=== PATIENT | male | born 1960 | race African-American/Black ===

== ENCOUNTER 2016-09-20 03:31 | Emergency (ER) | payer SELFPAY ==
[2016-09-20 05:50] LABS: BASOPHILS 0.4 % (0-2); EOSINOPHILS 5.6 % (0-7); HEMATOCRIT 41.6 % (42.0-54.0); HEMOGLOBIN 14.6 g/dL (13.5-17.5); LYMPHOCYTES 32.8 % (15-50); MCH 34.6 pg (26.0-34.0); MCHC 35.1 g/dL (31.0-37.0); MCV 98.6 fL (80.0-100.0); MEAN PLATELET VOLUME 10.4 fL (7.4-10.4); MONOCYTES 11.8 % (2-11); NEUTROPHILS 49.4 % (40-80); PLATELET COUNT 152 10x3/uL (130-400); RBC 4.22 10x6/uL (4.20-6.10); RDW 14.4 % (11.5-14.5); WBC 4.9 10x3/uL (4.8-10.8)
[2016-09-20 05:52] LABS: APPEARANCE CLEAR (CLEAR); BILIRUBIN NEGATIVE (NEGATIVE); COLOR STRAW (YELLOW); GLUCOSE NEGATIVE (NEGATIVE); KETONE NEGATIVE (NEGATIVE); LEUKOCYTE ESTERASE NEGATIVE (NEGATIVE); NITRITE NEGATIVE (NEGATIVE); PROTEIN TRACE mg/dL (NEGATIVE); UROBILINOGEN NORMAL (NORMAL)
[2016-09-20 05:54] LABS: UDS - AMPHET NEGATIVE QUAL (NEGATIVE); UDS - BARB NEGATIVE QUAL (NEGATIVE); UDS - BENZO POSITIVE QUAL (NEGATIVE); UDS - COCAINE POSITIVE QUAL (NEGATIVE); UDS - METH NEGATIVE QUAL (NEGATIVE); UDS - OPIATE NEGATIVE QUAL (NEGATIVE); UDS - PCP NEGATIVE QUAL (NEGATIVE); UDS - THC NEGATIVE QUAL (NEGATIVE)
[2016-09-20 06:14] LABS: ALBUMIN 3.5 g/dL (3.4-5.0); ALKALINE PHOSPHATASE 61 U/L (46-116); ALT (SGPT) 51 U/L (10-68); BILIRUBIN - TOTAL 0.21 mg/dL (0.2-1.3); CALC OSMOLALITY 285 mosm/kg (275-300); CALCIUM 8.8 mg/dL (8.5-10.1); CARBON DIOXIDE 24.7 mmol/L (21.0-32.0); CHLORIDE - SERUM 106 mmol/L (98-107); CREATININE - SERUM 0.7 mg/dL (0.6-1.3); GLUCOSE 74 mg/dL (74-106); POTASSIUM - SERUM 4.1 mmol/L (3.5-5.1); PROTEIN - SERUM 7.7 g/dL (6.4-8.2); SODIUM 145 mmol/L (136-145); UREA NITROGEN 7 mg/dL (7-18); eGFR NON AFRICAN AMERICAN > 90 mL/min (90-120)
== END 2016-09-20 18:30 | disposition home or self-care (01) ==
LOC: D.ER 03:31
PROVIDERS: Emergency Medicine
DX: F33.9 Major depressive disorder, recurrent, unspecified (principal); F10.129 Alcohol abuse with intoxication, unspecified; F17.200 Nicotine dependence, unspecified, uncomplicated

== ENCOUNTER 2018-03-20 22:06 | Emergency (ER) | payer MEDICAID ==
[~2018-03-20] VITALS: Ht 182.9 cm; Wt 81.8 kg
[2018-03-20 22:15] VITALS: Ht 182.9 cm; Wt 81.8 kg
[2018-03-20 23:08] LABS: BASOPHILS 0.4 % (0-2); EOSINOPHILS 6.4 % (0-7); HEMATOCRIT 39.2 % (42.0-54.0); HEMOGLOBIN 13.5 g/dL (13.5-17.5); LYMPHOCYTES 47.5 % (15-50); MCH 31.9 pg (26.0-34.0); MCHC 34.4 g/dL (31.0-37.0); MCV 92.7 fL (80.0-100.0); MEAN PLATELET VOLUME 9.4 fL (7.4-10.4); MONOCYTES 8.3 % (2-11); NEUTROPHILS 37.4 % (40-80); RBC 4.23 10x6/uL (4.20-6.10); RDW 14.6 % (11.5-14.5); WBC 5.7 10x3/uL (4.8-10.8)
[2018-03-20 23:09] LABS: PLATELET COUNT 282 10x3/uL (130-400)
[2018-03-20 23:12] LABS: APPEARANCE CLEAR (CLEAR); BILIRUBIN NEGATIVE (NEGATIVE); COLOR YELLOW (YELLOW); GLUCOSE NEGATIVE (NEGATIVE); KETONE NEGATIVE (NEGATIVE); NITRITE NEGATIVE (NEGATIVE); PROTEIN NEGATIVE (NEGATIVE); SPECIFIC GRAVITY 1.015 (1.005-1.020); UROBILINOGEN NORMAL (NORMAL)
[2018-03-20 23:19] LABS: ALBUMIN 3.3 g/dL (3.4-5.0); ALKALINE PHOSPHATASE 92 U/L (46-116); ALT (SGPT) 35 U/L (10-68); BILIRUBIN - TOTAL 0.16 mg/dL (0.2-1.3); CALC OSMOLALITY 288 mosm/kg (275-300); CALCIUM 8.9 mg/dL (8.5-10.1); CARBON DIOXIDE 29.5 mmol/L (21.0-32.0); CHLORIDE - SERUM 105 mmol/L (98-107); CREATININE - SERUM 0.8 mg/dL (0.6-1.3); GLUCOSE 99 mg/dL (74-106); PROTEIN - SERUM 7.8 g/dL (6.4-8.2); SODIUM 146 mmol/L (136-145); UREA NITROGEN 7 mg/dL (7-18); eGFR NON AFRICAN AMERICAN > 90 mL/min (90-120)
[2018-03-20 23:34] LABS: UDS - AMPHET NEGATIVE QUAL (NEGATIVE); UDS - BARB NEGATIVE QUAL (NEGATIVE); UDS - BENZO NEGATIVE QUAL (NEGATIVE); UDS - COCAINE NEGATIVE QUAL (NEGATIVE); UDS - OPIATE NEGATIVE QUAL (NEGATIVE); UDS - PCP NEGATIVE QUAL (NEGATIVE); UDS - THC NEGATIVE QUAL (NEGATIVE)
[2018-03-21 10:32] VITALS: BP 104/80
== END 2018-03-21 10:36 ==
LOC: D.ER 22:06 → EDBD 22:06 → D.ER 22:06
PROVIDERS: Emergency Medicine
DX: F10.129 Alcohol abuse with intoxication, unspecified (principal); F23 Brief psychotic disorder; R45.851 Suicidal ideations

== ENCOUNTER 2018-04-02 18:49 | Emergency (ER) | payer MEDICAID ==
[~2018-04-02] VITALS: Ht 182.9 cm; Wt 81.8 kg
[2018-04-02 19:01] VITALS: Ht 182.9 cm; Wt 81.8 kg
[2018-04-02] MEDS ORDERED: [UNRECOGNIZED DRUG - REMARK] (19:02)
[2018-04-02] MEDS ORDERED: HYDROCODONE (19:02)
[2018-04-02 19:46] LABS: BASOPHILS 0.7 % (0-2); EOSINOPHILS 5.7 % (0-7); HEMATOCRIT 37.6 % (42.0-54.0); HEMOGLOBIN 13.1 g/dL (13.5-17.5); IMMATURE GRANULOCYTES 0.2 % (0-5); LYMPHOCYTES 32.9 % (15-50); MCH 31.9 pg (26.0-34.0); MCHC 34.8 g/dL (31.0-37.0); MCV 91.5 fL (80.0-100.0); MEAN PLATELET VOLUME 9.8 fL (7.4-10.4); MONOCYTES 13.7 % (2-11); NEUTROPHILS 46.8 % (40-80); PLATELET COUNT 247 10x3/uL (130-400); RBC 4.11 10x6/uL (4.20-6.10); WBC 4.5 10x3/uL (4.8-10.8)
[2018-04-02 20:03] LABS: ALBUMIN 3.2 g/dL (3.4-5.0); ALKALINE PHOSPHATASE 75 U/L (46-116); ALT (SGPT) 69 U/L (10-68); BILIRUBIN - TOTAL 0.29 mg/dL (0.2-1.3); CALC OSMOLALITY 275 mosm/kg (275-300); CALCIUM 8.6 mg/dL (8.5-10.1); CARBON DIOXIDE 23.5 mmol/L (21.0-32.0); CHLORIDE - SERUM 102 mmol/L (98-107); CREATININE - SERUM 0.7 mg/dL (0.6-1.3); GLUCOSE 86 mg/dL (74-106); POTASSIUM - SERUM 3.7 mmol/L (3.5-5.1); PROTEIN - SERUM 7.7 g/dL (6.4-8.2); SODIUM 140 mmol/L (136-145); UREA NITROGEN 8 mg/dL (7-18); eGFR NON AFRICAN AMERICAN > 90 mL/min (90-120)
[2018-04-02 20:12] LABS: LIPASE 134 U/L (73-393); MAGNESIUM - SERUM 1.8 mg/dL (1.8-2.4); THYROID STIMULATING HORMONE 1.63 uIU/mL (0.36-3.74); TROPONIN-I < 0.017 ng/mL (0.000-0.060)
[2018-04-02 22:42] LABS: APPEARANCE CLEAR (CLEAR); BILIRUBIN NEGATIVE (NEGATIVE); COLOR YELLOW (YELLOW); GLUCOSE NEGATIVE (NEGATIVE); KETONE NEGATIVE (NEGATIVE); NITRITE NEGATIVE (NEGATIVE); PROTEIN NEGATIVE (NEGATIVE); UROBILINOGEN NORMAL (NORMAL)
[2018-04-02 22:52] LABS: UDS - AMPHET NEGATIVE QUAL (NEGATIVE); UDS - BARB NEGATIVE QUAL (NEGATIVE); UDS - BENZO NEGATIVE QUAL (NEGATIVE); UDS - COCAINE NEGATIVE QUAL (NEGATIVE); UDS - OPIATE NEGATIVE QUAL (NEGATIVE); UDS - PCP NEGATIVE QUAL (NEGATIVE); UDS - THC NEGATIVE QUAL (NEGATIVE)
[2018-04-05 04:49] LABS: BASOPHILS 0.5 % (0-2); EOSINOPHILS 6.5 % (0-7); HEMATOCRIT 34.9 % (42.0-54.0); HEMOGLOBIN 11.6 g/dL (13.5-17.5); IMMATURE GRANULOCYTES 0.3 % (0-5); LYMPHOCYTES 41.3 % (15-50); MCH 30.9 pg (26.0-34.0); MCHC 33.2 g/dL (31.0-37.0); MCV 93.1 fL (80.0-100.0); MEAN PLATELET VOLUME 9.5 fL (7.4-10.4); MONOCYTES 13.6 % (2-11); NEUTROPHILS 37.8 % (40-80); PLATELET COUNT 228 10x3/uL (130-400); RBC 3.75 10x6/uL (4.20-6.10); RDW 15.2 % (11.5-14.5); WBC 3.8 10x3/uL (4.8-10.8)
[2018-04-05 04:57] LABS: ALBUMIN 2.9 g/dL (3.4-5.0); ALKALINE PHOSPHATASE 58 U/L (46-116); ALT (SGPT) 42 U/L (10-68); BILIRUBIN - TOTAL 0.46 mg/dL (0.2-1.3); CALC OSMOLALITY 284 mosm/kg (275-300); CALCIUM 8.4 mg/dL (8.5-10.1); CARBON DIOXIDE 26.5 mmol/L (21.0-32.0); CHLORIDE - SERUM 106 mmol/L (98-107); CREATININE - SERUM 0.6 mg/dL (0.6-1.3); GLUCOSE 95 mg/dL (74-106); POTASSIUM - SERUM 4.1 mmol/L (3.5-5.1); PROTEIN - SERUM 6.8 g/dL (6.4-8.2); SODIUM 144 mmol/L (136-145); UREA NITROGEN 8 mg/dL (7-18); eGFR NON AFRICAN AMERICAN > 90 mL/min (90-120)
[2018-04-05 05:08] LABS: THYROID STIMULATING HORMONE 0.77 uIU/mL (0.36-3.74)
[2018-04-05 05:10] LABS: APPEARANCE CLEAR (CLEAR); BILIRUBIN NEGATIVE (NEGATIVE); COLOR YELLOW (YELLOW); GLUCOSE NEGATIVE (NEGATIVE); KETONE NEGATIVE (NEGATIVE); NITRITE NEGATIVE (NEGATIVE); PROTEIN NEGATIVE (NEGATIVE); UROBILINOGEN NORMAL (NORMAL)
[2018-04-05 11:05] VITALS: BP 135/88
--- NOTE | 2018-04-05 15:48 | CN ---
PATIENT NAME:BALTA DUQUE MEDICAL RECORD: [id number] : [birth year] LOCATION:[facility] ADMIT DATE: ACCOUNT: [id number] CONSULTING PHYSICIAN: JONAH DICKEY MD REFERRING PHYSICIAN: LESLY LAM MD DATE OF CONSULTATION: 04/04/2018 PSYCHIATRIC CONSULTATION IDENTIFYING DATA: The patient is 58 years old and he is admitted to the Emergency Room on a voluntary basis. CHIEF COMPLAINT: Suicidal thoughts and psychosis. HISTORY OF PRESENT ILLNESS: The patient was originally brought to the hospital via EMS. He has a known history of chronic mental illness and has been extensively treated on an inpatient and outpatient basis for several decades. He was intoxicated at the time he presented here and was having some suicidal ideations. He is endorsing numerous neurovegetative depressive symptoms. He is not showing evidence of alcohol withdrawal. He minimizes the amount he drinks, but since he has been here, has not displayed any evidence of alcohol withdrawal that would necessitate treatment. He continues to endorse thoughts of wanting to hurt himself and says that if he leaves here, he is going to wheel his wheelchair into traffic and kill himself. He also says he is having thoughts about hurting other people. He is clearly psychotic. He is attending to stimuli not present in the room. When I interview him, he is making poor eye contact. He is endorsing numerous neurovegetative symptoms and is acutely dangerous. The patient denies drug use. He minimizes his alcohol abuse. He says he has not been taking his outpatient medications and has been lost to follow up from his outpatient psychiatrist. PAST PSYCHIATRIC HISTORY: Significant for numerous hospitalizations including extensive stays at the [facility], [facility], and other facilities. MENTAL STATUS EXAMINATION: The patient is awake; alert; and oriented to person, place, time, and situation. His mood is flat. His affect is constricted. Thought processes are circumstantial. Memory, concentration, and abstraction abilities are moderately impaired and he endorses psychotic symptoms along with specific thoughts about harming himself and vague thoughts about harming others. ASSESSMENT: 1. Schizophrenia. 2. Alcohol abuse. PLAN: At this time, the patient is a known chronically mentally ill man who is in desperate need of inpatient psychiatric care. I strongly recommend that he be admitted to a psychiatric facility. There is some information in his chart that needs clarification. He is not a paraplegic. 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 He is wheelchair bound, but is able to stand and transfer. He has some contractions in his upper arms, but is able to extend and flex his major muscle groups from the hip. He is also able to move both ankles in a circular motion. He has reasonable range of motion in his upper body and again he does not wear a catheter. He toilets himself, washes himself, dresses himself, and transfers from bed to wheelchair, wheelchair to toilet and/or sofa as needed. He is profoundly psychotic and CONSULT REPORT [id number] BALTA DUQUE acutely dangerous, and must be hospitalized on an inpatient psychiatric unit for care. TRANSINT:[id number] Voice Confirmation ID: [id number] DOCUMENT ID: [id number] JONAH DICKEY MD at 1548 CC: [id number] DICTATION DATE: 04/04/181837 COOK HELPER MEAT: 04/04/18 185 DEP ER 04/05/18 [id number] [place] [address]
== END 2018-04-05 11:06 ==
LOC: D.ER 18:49
PROVIDERS: Emergency Medicine; Family Medicine
DX: R45.851 Suicidal ideations (principal); G89.29 Other chronic pain; F17.200 Nicotine dependence, unspecified, uncomplicated

== ENCOUNTER 2018-12-02 01:53 | Emergency (ER) | payer MEDICAID ==
[~2018-12-02] VITALS: Ht 182.9 cm; Wt 54.5 kg
[~2018-12-02 01:53] MED LIST: HYDROCODONE; [UNRECOGNIZED DRUG - REMARK]
[2018-12-02 01:56] VITALS: Ht 182.9 cm; Wt 54.5 kg
[2018-12-02 02:31] LABS: APPEARANCE CLEAR (CLEAR); BILIRUBIN NEGATIVE (NEGATIVE); COLOR YELLOW (YELLOW); GLUCOSE NEGATIVE (NEGATIVE); KETONE NEGATIVE (NEGATIVE); NITRITE NEGATIVE (NEGATIVE); PROTEIN NEGATIVE (NEGATIVE); SPECIFIC GRAVITY 1.015 (1.005-1.020); UROBILINOGEN NORMAL (NORMAL)
[2018-12-02 02:39] LABS: BASOPHILS 0.8 % (0-2); EOSINOPHILS 3.9 % (0-7); HEMATOCRIT 37.4 % (42.0-54.0); HEMOGLOBIN 13.2 g/dL (13.5-17.5); IMMATURE GRANULOCYTES 0.3 % (0-5); LYMPHOCYTES 38.7 % (15-50); MCH 34.3 pg (26.0-34.0); MCHC 35.3 g/dL (31.0-37.0); MCV 97.1 fL (80.0-100.0); MEAN PLATELET VOLUME 9.7 fL (7.4-10.4); MONOCYTES 14.2 % (2-11); NEUTROPHILS 42.1 % (40-80); PLATELET COUNT 197 10x3/uL (130-400); RBC 3.85 10x6/uL (4.20-6.10); RDW 14.2 % (11.5-14.5); WBC 6.1 10x3/uL (4.8-10.8)
[2018-12-02 02:42] LABS: UDS - AMPHET NEGATIVE QUAL (NEGATIVE); UDS - BARB NEGATIVE QUAL (NEGATIVE); UDS - BENZO NEGATIVE QUAL (NEGATIVE); UDS - COCAINE NEGATIVE QUAL (NEGATIVE); UDS - OPIATE NEGATIVE QUAL (NEGATIVE); UDS - PCP NEGATIVE QUAL (NEGATIVE); UDS - THC NEGATIVE QUAL (NEGATIVE)
[2018-12-02 03:00] LABS: ALBUMIN 3.3 g/dL (3.4-5.0); ALKALINE PHOSPHATASE 84 U/L (46-116); ALT (SGPT) 29 U/L (10-68); BILIRUBIN - TOTAL 0.12 mg/dL (0.2-1.3); CALCIUM 8.3 mg/dL (8.5-10.1); CARBON DIOXIDE 25.6 mmol/L (21.0-32.0); CREATININE - SERUM 0.7 mg/dL (0.6-1.3); GLUCOSE 75 mg/dL (74-106); UREA NITROGEN 14 mg/dL (7-18); eGFR NON AFRICAN AMERICAN > 90 mL/min (90-120)
[2018-12-02 03:52] LABS: CALC OSMOLALITY 280 mosm/kg (275-300); CHLORIDE - SERUM 104 mmol/L (98-107); POTASSIUM - SERUM 3.8 mmol/L (3.5-5.1); SODIUM 141 mmol/L (136-145)
--- NOTE | 2018-12-02 11:16 | NUR ---
PT DENIES SI AT THIS TIME. HE STATED, "I WAS DRINKING AND THAT MUST HAVE BEEN WHY I SAID THAT." PT STATED, "I HAVE NEVER TRIED TO HURT MYSELF AND I DON'T HAVE ANY WAY TO DO IT ANYWAY." REVIEWED RESULTS WITH DR. DICKEY AND ATTENDING AND RESOURCES GIVEN. PT VERBALIZED UNDERSTANDING.
[2018-12-02 11:30] VITALS: BP 106/68
[2018-12-12 23:22] VITALS: Ht 182.9 cm; Wt 54.5 kg
== END 2018-12-02 11:31 | disposition home or self-care (01) ==
LOC: D.ER 01:53
PROVIDERS: Emergency Medicine
DX: F10.129 Alcohol abuse with intoxication, unspecified (principal); F17.200 Nicotine dependence, unspecified, uncomplicated; G82.20 Paraplegia, unspecified

== ENCOUNTER 2018-12-02 20:42 | Observation (INO) | payer MEDICAID ==
[~2018-12-02] VITALS: Ht 182.9 cm; Wt 59.6 kg
--- NOTE | 2018-12-02 20:52 | NUR ---
PT IN SECURE ROOM 21. IN SCRUBS. 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
[2018-12-02 21:03] LABS: BASOPHILS 0.6 % (0-2); EOSINOPHILS 2.9 % (0-7); HEMATOCRIT 33.1 % (42.0-54.0); HEMOGLOBIN 11.7 g/dL (13.5-17.5); IMMATURE GRANULOCYTES 0.1 % (0-5); MCH 33.9 pg (26.0-34.0); MCHC 35.3 g/dL (31.0-37.0); MCV 95.9 fL (80.0-100.0); MONOCYTES 12.7 % (2-11); NEUTROPHILS 43.7 % (40-80); PLATELET COUNT 195 10x3/uL (130-400); RBC 3.45 10x6/uL (4.20-6.10); RDW 14.1 % (11.5-14.5); WBC 6.8 10x3/uL (4.8-10.8)
[2018-12-02 21:19] LABS: ALBUMIN 3.1 g/dL (3.4-5.0); ALKALINE PHOSPHATASE 76 U/L (46-116); ALT (SGPT) 27 U/L (10-68); BILIRUBIN - TOTAL 0.18 mg/dL (0.2-1.3); CALCIUM 7.8 mg/dL (8.5-10.1); CARBON DIOXIDE 26.4 mmol/L (21.0-32.0); CHLORIDE - SERUM 108 mmol/L (98-107); CREATININE - SERUM 0.7 mg/dL (0.6-1.3); POTASSIUM - SERUM 3.8 mmol/L (3.5-5.1); PROTEIN - SERUM 7.4 g/dL (6.4-8.2); SODIUM 142 mmol/L (136-145); eGFR NON AFRICAN AMERICAN > 90 mL/min (90-120)
[2018-12-02 21:23] LABS: CALC OSMOLALITY 282 mosm/kg (275-300); GLUCOSE 117 mg/dL (74-106); UREA NITROGEN 10 mg/dL (7-18)
[2018-12-02 21:25] LABS: INR 0.89 (0.85-1.17); PROTIME 11.6 SECONDS (11.6-15.0)
--- NOTE | 2018-12-02 21:32 | NUR ---
PT TO CT.
--- NOTE | 2018-12-02 21:37 | NUR ---
BACK FROM CT.
--- NOTE | 2018-12-02 21:40 | NUR ---
UNABLE TO ASSESS DO TO INTOXICATION. WILL ASSESS AFTER AM LAB IF CLEARED OF INTOX.
--- NOTE | 2018-12-02 21:59 | NUR ---
PT'S URINAL AT BEDSIDE. PT RESTING QUIETLY WITH EYES CLOSED.
--- NOTE | 2018-12-02 23:15 | NUR ---
PT INCONTINENT OF URINE. BANANA BAG HUNG. PT STILL USING FOUL LANGUAGE AND DIFFICULT TO ASSESS.
--- NOTE | 2018-12-02 23:20 | NUR ---
BANANA BAG CON'T ON ADMISSION. BELONGINGS INCLUDING WHEELCHAIR TO ICU WELL. INFORMED ALY BARTH IN ICU THAT WHEN PATIENT MARTHA UP WILL NEED MENTAL HEALTH ASSESSMENT. VERBALIZES UNDERSTANDING.
--- NOTE | 2018-12-02 23:25 | NUR ---
SPOKE TO DR. ERNANDEZ ABOUT URINE. STATES NOT TO CATHETERIZE- MAY COLLECT IN ICU. PT'S PULL UP AND LINEN CHANGED.
--- NOTE | 2018-12-02 23:35 | NUR ---
PT ARRIVED TO ICU ON ER STRETCHER. PT MOVED OVER INTO ICU BED AND HOOKED UP TO MONITOR. VSS. UNABLE TO ASCERTAIN INFORMATION FROM PT DUE TO INEBRIATION. PT CURRENTLY SLEEPING. SNORING. WILL CONTINUE TO MONITOR FOR CHANCE TO GET HISTORY FROM PT.
[2018-12-03] VITALS (9 sets, daily range): BP systolic 91–132; BP diastolic 52–102; Ht 182.9 cm; Wt 59.6 kg
--- NOTE | 2018-12-03 01:01 | NUR ---
UNABLE TO ASSESS PT HISTORY DUE TO COMBATIVE MOOD OF PT. DOES NOT RESPOND TO QUESTIONS. WILL CONTINUE TO MONITOR
--- NOTE | 2018-12-03 03:00 | NUR ---
PT REASSESSMENT COMPLETED. PT STILL REFUSES TO COOPERATE WITH NURSING STAFF TO ANSWER QUESTIONS. VSS. WILL CONTINUE TO MONITOR. PULSE OX IS BEING SPOT CHECKED DUE TO PT REFUSING TO KEEP PULSE OX ON.
[2018-12-03 04:12] LABS: UDS - AMPHET NEGATIVE QUAL (NEGATIVE); UDS - BARB NEGATIVE QUAL (NEGATIVE); UDS - BENZO NEGATIVE QUAL (NEGATIVE); UDS - COCAINE NEGATIVE QUAL (NEGATIVE); UDS - OPIATE NEGATIVE QUAL (NEGATIVE); UDS - PCP NEGATIVE QUAL (NEGATIVE); UDS - THC NEGATIVE QUAL (NEGATIVE)
[2018-12-03 04:29] LABS: APPEARANCE CLEAR (CLEAR); BILIRUBIN NEGATIVE (NEGATIVE); COLOR YELLOW (YELLOW); GLUCOSE NEGATIVE (NEGATIVE); KETONE NEGATIVE (NEGATIVE); NITRITE NEGATIVE (NEGATIVE); PROTEIN NEGATIVE (NEGATIVE); UROBILINOGEN NORMAL (NORMAL)
[2018-12-03 04:30] LABS: BACTERIA FEW /hpf (NEGATIVE); EPITHELIAL CELLS 0-5 /hpf (0-5); MUCUS <1+ /lpf (NONE SEEN); RED CELLS - URINE 0-5 /hpf (0-5); WHITE CELLS - URINE 0-5 /hpf (NEGATIVE)
--- NOTE | 2018-12-03 05:04 | NUR ---
PT RESTING IN BED. AWAKENS EASILY BUT DOES NOT RESPOND WHEN ASKED QUESTIONS ABOUT HISTORY. WILL CONTINUE MONITOR.
--- NOTE | 2018-12-03 07:43 | NUR ---
PT ANGRY AND THREATENING TO LEAVE AMA. TOLD PT THAT DR DICKEY NEEDED TO ROUND ON HIM 1ST. SAYS HE NEEDS TO HAVE A BM. PUT PT ON BEDPAN. PT MAD AND STATED HE WAS UNABLE TO USE BEDPAN AND THAT HE WANTED A BSC. PT DOES NOT WALK. IS A PARAPLEGIC. STATED TO TRY TO USE BEDPAN FOR NOW.
--- NOTE | 2018-12-03 09:08 | NUR ---
DR BANKS ROUNDED AND HAD TOLD THE PT HE COULD LEAVE AMA, AFTER PT DOES CLEARS BEHAVIORAL HEALTH. SPOKE WITH KURT RN, IN BEHAVIORAL HEALTH. SHE STATED TO GO ON AND GET HIS ALCOHOL LEVEL DRAWN ONE MORE TIME TO MAKE SURE IT IS UNDER 100 THEN A PSYCH NURSE CAN DO HIS SUICIDE RISK ASSESSMENT AND THAT WILL DETERMINE IF THE PT CAN SIGN AMA OR IF HE MUST STAY TO SEE DR DICKEY. PT VERBALIZED UNDERSTANDING. THEN 5 MINUTES LATER STARTED HOLLERING ABOUT "LEAVING THIS [facility]." TOLD PT AGAIN THAT WE WERE WAITING ON HIS BLOOD TO BE DRAWN.
--- NOTE | 2018-12-03 09:32 | NUR ---
HYDROGEN PLANT OPERATIONS MANAGER IN ROOM DRAWING BLOOD AT THIS TIME.
--- NOTE | 2018-12-03 09:50 | NUR ---
ALCOHOL LEVEL RETURNED 0.0. PSYCH NURSE IN TO ASSESS PT.
--- NOTE | 2018-12-03 10:11 | NUR ---
SUICIDAL RISK ASSESSMENT COMPLETED. PATIENT'S BEHAVIOR AND ASSESSMENT RESULTS IS AT LOW RISK. DR. DICKEY STATED TO GIVE RESOURCES TO PATIENT AT THE TIME OF DISCHARGE. NO FURTHER ORDERS AT THIS TIME. RESOURCES REVIEWED WITH PATIENT AND HE VERBALIZES UNDERSTANDING.
--- NOTE | 2018-12-03 10:15 | NUR ---
PSYCH NURSE STATES PT IS LOW RISK SO PT DOES NOT HAVE TO SEE THE PSYCH DOCTOR. PT STATES HE WANTS TO LEAVE IMMEDIATELY.
--- NOTE | 2018-12-03 10:30 | NUR ---
HAD LARGE BM. PUT ON PAPERSCRUBS. IV REMOVED. ASSISTED TO WHEELCHAIR.
--- NOTE | 2018-12-03 10:42 | NUR ---
PT SIGNED AMA PAPERWORK.
--- NOTE | 2018-12-03 10:44 | NUR ---
PT WANTS CAB VOUCHER. DO NOT GIVE TO PTS WHO SIGN AMA. TOLD PT THAT.
--- NOTE | 2018-12-03 10:59 | MORECARE ---
CASE MANAGEMENT DISCHARGE SUMMARY PATIENT: BALTA DUQUE UNIT: [id number] ADM DATE: 12/02/18 AGE: 59 : [birth year] SEX: M ROOM/BED: D.2310 AUTHOR: MEENA CANTU PHYSICIAN: REFERRING PHYSICIAN: RAJAT BANKS MD DATE OF SERVICE: 12/03/18 Discharge Plan Patient Name: BALTA DUQUE Facility: [facility]:[place] : 10/27/1959 Planned Disposition: Anticipated Discharge Date: Discharge Date: 12/03/2018 Expected LOS: Initial Reviewer: [email or web address] Initial Review Date: 12/02/2018 Generated: 12/03/18 11:58 am Patient Name: BALTA DUQUE Page [id number] at 1059 All edits/amendments must be made on the electronic document DICTATION DATE: 12/03/18 1058 CABLE ASSEMBLER AND SWAGER: LEOBARDO 12/03/18 1058 RPT#: [id number] DC DATE:12/03/18 STATUS: DIS IN [facility] [address] [place] [address] END OF REPORT
--- NOTE | 2018-12-03 21:40 | NUR ---
PATIENT IS INTOXICATED AT THIS TIME. UNABLE TO ASSESS. WILL ATTEMPTED AFTER AM LAB IF CLEARED AT THAT TIME.
[2018-12-04] MEDS ORDERED: ROXICODONE30 MG PO (04:28)
== END 2018-12-03 10:52 | disposition left against medical advice (07) ==
LOC: D.ER 20:42 → OBSVTIME 22:14 → D.ICU 22:14
PROVIDERS: Emergency Medicine; ADMIT Family Medicine; ATTEND Family Medicine
DX: F10.121 Alcohol abuse with intoxication delirium (principal); R45.851 Suicidal ideations; F17.200 Nicotine dependence, unspecified, uncomplicated; G82.20 Paraplegia, unspecified

== ENCOUNTER 2018-12-04 04:20 | Emergency (ER) | payer MEDICAID ==
[~2018-12-04] VITALS: Ht 182.9 cm; Wt 58.2 kg
[2018-12-04 04:26] VITALS: BP 101/66; Ht 182.9 cm; Wt 58.2 kg
[2018-12-04] MEDS ORDERED: ROXICODONE30 MG PO (04:28)
[2018-12-04 05:05] LABS: BASOPHILS 0.6 % (0-2); EOSINOPHILS 1.6 % (0-7); HEMATOCRIT 37.6 % (42.0-54.0); HEMOGLOBIN 13.4 g/dL (13.5-17.5); LYMPHOCYTES 38.6 % (15-50); MCH 34.1 pg (26.0-34.0); MCHC 35.6 g/dL (31.0-37.0); MCV 95.7 fL (80.0-100.0); MEAN PLATELET VOLUME 9.5 fL (7.4-10.4); MONOCYTES 8.8 % (2-11); NEUTROPHILS 50.4 % (40-80); PLATELET COUNT 233 10x3/uL (130-400); RBC 3.93 10x6/uL (4.20-6.10); RDW 14.1 % (11.5-14.5)
[2018-12-04 05:22] LABS: ALBUMIN 3.5 g/dL (3.4-5.0); ALKALINE PHOSPHATASE 66 U/L (46-116); BILIRUBIN - TOTAL 0.17 mg/dL (0.2-1.3); CALCIUM 8.8 mg/dL (8.5-10.1); CARBON DIOXIDE 28.3 mmol/L (21.0-32.0); CHLORIDE - SERUM 104 mmol/L (98-107); CREATININE - SERUM 0.6 mg/dL (0.6-1.3); GLUCOSE 94 mg/dL (74-106); POTASSIUM - SERUM 4.3 mmol/L (3.5-5.1); PROTEIN - SERUM 8.3 g/dL (6.4-8.2); SODIUM 141 mmol/L (136-145); eGFR NON AFRICAN AMERICAN > 90 mL/min (90-120)
[2018-12-04 05:23] LABS: ALT (SGPT) 37 U/L (10-68); CALC OSMOLALITY 277 mosm/kg (275-300); UREA NITROGEN 5 mg/dL (7-18)
[2018-12-04 07:29] LABS: APPEARANCE CLEAR (CLEAR); BILIRUBIN NEGATIVE (NEGATIVE); COLOR STRAW (YELLOW); GLUCOSE NEGATIVE (NEGATIVE); KETONE NEGATIVE (NEGATIVE); NITRITE NEGATIVE (NEGATIVE); PROTEIN NEGATIVE (NEGATIVE); SPECIFIC GRAVITY 1.015 (1.005-1.020); UROBILINOGEN NORMAL (NORMAL)
[2018-12-04 07:39] LABS: UDS - AMPHET NEGATIVE QUAL (NEGATIVE); UDS - BARB NEGATIVE QUAL (NEGATIVE); UDS - BENZO NEGATIVE QUAL (NEGATIVE); UDS - COCAINE POSITIVE QUAL (NEGATIVE); UDS - OPIATE NEGATIVE QUAL (NEGATIVE); UDS - PCP NEGATIVE QUAL (NEGATIVE); UDS - THC NEGATIVE QUAL (NEGATIVE)
--- NOTE | 2018-12-04 10:11 | NUR ---
DR. DICKEY NOTIFIED AND REVIEWED PT'S BEHAVIOR AND ASSESSMENT RESULTS. PT IS A LOW RISK PER DR. DICKEY. DR. DICKEY STATED TO GIVE RESOURCES TO PT AT TIME OF DISCHARGE. NO FURTHER ORDERS AT THIS TIME. RESOURCES REVIEWED WITH PT AND HE VERBALIZED UNDERSTANDING.
== END 2018-12-04 14:14 | disposition home or self-care (01) ==
LOC: D.ER 04:20
PROVIDERS: Emergency Medicine
DX: R45.851 Suicidal ideations (principal); D64.9 Anemia, unspecified; F10.10 Alcohol abuse, uncomplicated; F19.10 Other psychoactive substance abuse, uncomplicated; F32.9 Major depressive disorder, single episode, unspecified

== ENCOUNTER 2018-12-06 15:52 | Emergency (ER) | payer MEDICAID ==
[~2018-12-06] VITALS: Ht 182.9 cm; Wt 59.1 kg
[~2018-12-06 15:52] MED LIST changes: +ROXICODONE30 MG PO
[2018-12-06 16:01] VITALS: BP 93/59; Ht 182.9 cm; Wt 59.1 kg
== END 2018-12-06 16:15 | disposition home or self-care (01) ==
LOC: D.ER 15:52
DX: Z13.89 Encounter for screening for other disorder (principal)

== ENCOUNTER 2018-12-09 03:43 | Emergency (ER) | payer MEDICAID ==
[~2018-12-09] VITALS: Ht 182.9 cm; Wt 56.8 kg
[2018-12-09 03:47] VITALS: Ht 182.9 cm; Wt 56.8 kg
[2018-12-09 08:01] VITALS: BP 131/86
== END 2018-12-09 08:03 | disposition home or self-care (01) ==
LOC: D.ER 03:43
DX: F10.20 Alcohol dependence, uncomplicated (principal); G82.20 Paraplegia, unspecified; B19.20 Unspecified viral hepatitis C without hepatic coma

== ENCOUNTER 2018-12-10 22:00 | Emergency (ER) | payer MEDICAID ==
[~2018-12-10] VITALS: Ht 182.9 cm; Wt 85.9 kg
[2018-12-10 22:14] VITALS: BP 107/61; Ht 182.9 cm; Wt 85.9 kg
== END 2018-12-11 07:28 | disposition home or self-care (01) ==
LOC: D.ER 22:00
DX: F10.229 Alcohol dependence with intoxication, unspecified (principal); Y90.7 Blood alcohol level of 200-239 mg/100 ml; Z76.5 Malingerer [conscious simulation]; B19.20 Unspecified viral hepatitis C without hepatic coma

== ENCOUNTER 2018-12-12 23:20 | Emergency (ER) | payer MEDICAID ==
[~2018-12-12] VITALS: Ht 182.9 cm; Wt 50.0 kg
[2018-12-12 23:22] VITALS: Ht 182.9 cm; Wt 50.0 kg
[2018-12-12 23:44] LABS: HEMATOCRIT 34.9 % (42.0-54.0); HEMOGLOBIN 12.4 g/dL (13.5-17.5); LYMPHOCYTES 33.7 % (15-50); MCH 34.9 pg (26.0-34.0); MCHC 35.5 g/dL (31.0-37.0); MCV 98.3 fL (80.0-100.0); MEAN PLATELET VOLUME 9.1 fL (7.4-10.4); NEUTROPHILS 60.3 % (40-80); PLATELET COUNT 234 10x3/uL (130-400); RBC 3.55 10x6/uL (4.20-6.10); RDW 14.8 % (11.5-14.5); WBC 5.9 10x3/uL (4.8-10.8)
[2018-12-13 00:06] LABS: ALBUMIN 3.3 g/dL (3.4-5.0); ALKALINE PHOSPHATASE 79 U/L (46-116); ALT (SGPT) 39 U/L (10-68); BILIRUBIN - TOTAL 0.22 mg/dL (0.2-1.3); CALC OSMOLALITY 278 mosm/kg (275-300); CALCIUM 8.3 mg/dL (8.5-10.1); CARBON DIOXIDE 25.8 mmol/L (21.0-32.0); CHLORIDE - SERUM 104 mmol/L (98-107); CREATININE - SERUM 0.6 mg/dL (0.6-1.3); GLUCOSE 105 mg/dL (74-106); MAGNESIUM - SERUM 1.8 mg/dL (1.8-2.4); POTASSIUM - SERUM 3.8 mmol/L (3.5-5.1); PROTEIN - SERUM 7.9 g/dL (6.4-8.2); SODIUM 141 mmol/L (136-145); UREA NITROGEN 8 mg/dL (7-18); eGFR NON AFRICAN AMERICAN > 90 mL/min (90-120)
[2018-12-13 02:43] LABS: UDS - AMPHET NEGATIVE QUAL (NEGATIVE); UDS - BARB NEGATIVE QUAL (NEGATIVE); UDS - BENZO NEGATIVE QUAL (NEGATIVE); UDS - COCAINE POSITIVE QUAL (NEGATIVE); UDS - OPIATE NEGATIVE QUAL (NEGATIVE); UDS - PCP NEGATIVE QUAL (NEGATIVE); UDS - THC NEGATIVE QUAL (NEGATIVE)
[2018-12-13 02:44] LABS: APPEARANCE CLEAR (CLEAR); COLOR YELLOW (YELLOW)
[2018-12-13 02:45] LABS: BILIRUBIN NEGATIVE (NEGATIVE); GLUCOSE NEGATIVE (NEGATIVE); KETONE NEGATIVE (NEGATIVE); NITRITE NEGATIVE (NEGATIVE); PROTEIN NEGATIVE (NEGATIVE); SPECIFIC GRAVITY 1.015 (1.005-1.020); UROBILINOGEN NORMAL (NORMAL)
[2018-12-13 08:34] VITALS: BP 137/78
== END 2018-12-13 08:35 | disposition home or self-care (01) ==
LOC: D.ER 23:20
PROVIDERS: Family Medicine
DX: R45.851 Suicidal ideations (principal); F10.129 Alcohol abuse with intoxication, unspecified; Y90.8 Blood alcohol level of 240 mg/100 ml or more

== ENCOUNTER 2018-12-15 05:32 | Emergency (ER) | payer MEDICAID ==
[~2018-12-15] VITALS: Ht 182.9 cm; Wt 75.0 kg
[2018-12-15 05:44] VITALS: Ht 182.9 cm; Wt 75.0 kg
[2018-12-15 06:24] LABS: BASOPHILS 0.7 % (0-2); EOSINOPHILS 5.5 % (0-7); HEMOGLOBIN 15.1 g/dL (13.5-17.5); IMMATURE GRANULOCYTES 0.2 % (0-5); LYMPHOCYTES 37.3 % (15-50); MCH 34.7 pg (26.0-34.0); MCHC 34.3 g/dL (31.0-37.0); MCV 101.1 fL (80.0-100.0); MEAN PLATELET VOLUME 9.8 fL (7.4-10.4); MONOCYTES 9.2 % (2-11); NEUTROPHILS 47.1 % (40-80); PLATELET COUNT 242 10x3/uL (130-400); RBC 4.35 10x6/uL (4.20-6.10); RDW 14.5 % (11.5-14.5); WBC 4.4 10x3/uL (4.8-10.8)
[2018-12-15 06:42] LABS: ALBUMIN 3.6 g/dL (3.4-5.0); ALKALINE PHOSPHATASE 77 U/L (46-116); ALT (SGPT) 40 U/L (10-68); BILIRUBIN - TOTAL 0.18 mg/dL (0.2-1.3); CALC OSMOLALITY 282 mosm/kg (275-300); CALCIUM 8.6 mg/dL (8.5-10.1); CARBON DIOXIDE 28.2 mmol/L (21.0-32.0); CHLORIDE - SERUM 104 mmol/L (98-107); CREATININE - SERUM 0.5 mg/dL (0.6-1.3); MAGNESIUM - SERUM 2.1 mg/dL (1.8-2.4); PROTEIN - SERUM 8.4 g/dL (6.4-8.2); SODIUM 144 mmol/L (136-145); UREA NITROGEN 7 mg/dL (7-18); eGFR NON AFRICAN AMERICAN > 90 mL/min (90-120)
[2018-12-15 06:44] LABS: GLUCOSE 70 mg/dL (74-106)
[2018-12-15 11:07] LABS: APPEARANCE CLEAR (CLEAR); BILIRUBIN NEGATIVE (NEGATIVE); COLOR YELLOW (YELLOW); GLUCOSE NEGATIVE (NEGATIVE); KETONE NEGATIVE (NEGATIVE); NITRITE NEGATIVE (NEGATIVE); PROTEIN NEGATIVE (NEGATIVE); SPECIFIC GRAVITY 1.025 (1.005-1.020); UROBILINOGEN NORMAL (NORMAL)
[2018-12-15 11:12] LABS: UDS - AMPHET NEGATIVE QUAL (NEGATIVE); UDS - BARB NEGATIVE QUAL (NEGATIVE); UDS - BENZO NEGATIVE QUAL (NEGATIVE); UDS - COCAINE POSITIVE QUAL (NEGATIVE); UDS - OPIATE NEGATIVE QUAL (NEGATIVE); UDS - PCP NEGATIVE QUAL (NEGATIVE); UDS - THC NEGATIVE QUAL (NEGATIVE)
--- NOTE | 2018-12-15 12:22 | NUR ---
DR. DICKEY NOTIFIED AND SITTER ORDERED. SITTER AT BEDSIDE. NOTIFIED CHARGE NURSE AND ATTENDING IN REGARDS TO ASSESSMENT FINDINGS. RESOURCES GIVEN TO PT AND SAFETY PLAN INTIATED.
[2018-12-15 15:17] VITALS: BP 112/68
== END 2018-12-15 20:27 ==
LOC: D.ER 05:32
PROVIDERS: Emergency Medicine
DX: R45.851 Suicidal ideations (principal)

== ENCOUNTER 2018-12-26 04:40 | Emergency (ER) | payer MEDICAID ==
[~2018-12-26] VITALS: Ht 182.9 cm; Wt 59.1 kg
[2018-12-26 04:55] VITALS: Ht 182.9 cm; Wt 59.1 kg
--- NOTE | 2018-12-26 05:24 | NUR ---
UNABLE TO ASSESS PT AT THIS TIME PT DRIFTING OFF TO SLEEP BETWEEN QUESTIONS, PT HAD MADE STATEMENT TO EMS AND POLICE THAT HE WAS GOING TO KILL HIMSELF BY ROLLING OUT INTO TRAFFIC IN HIS WHEELCHAIR. 1:1 SUICIDE OBSERVATION DUE TO PRIOR STATEMENTS AND WILL ASSESS WHEN HE IS ALERT.
[2018-12-26 05:31] LABS: HEMATOCRIT 40.5 % (42.0-54.0); LYMPHOCYTES 39.2 % (15-50); MCH 34.6 pg (26.0-34.0); MCHC 34.6 g/dL (31.0-37.0); MEAN PLATELET VOLUME 8.9 fL (7.4-10.4); NEUTROPHILS 51.1 % (40-80); PLATELET COUNT 209 10x3/uL (130-400); RBC 4.05 10x6/uL (4.20-6.10); RDW 14.5 % (11.5-14.5); WBC 4.8 10x3/uL (4.8-10.8)
[2018-12-26 05:55] LABS: ALBUMIN 3.2 g/dL (3.4-5.0); ALKALINE PHOSPHATASE 71 U/L (46-116); ALT (SGPT) 26 U/L (10-68); BILIRUBIN - TOTAL 0.12 mg/dL (0.2-1.3); CALC OSMOLALITY 280 mosm/kg (275-300); CALCIUM 8.7 mg/dL (8.5-10.1); CARBON DIOXIDE 25.6 mmol/L (21.0-32.0); CHLORIDE - SERUM 106 mmol/L (98-107); CREATININE - SERUM 0.5 mg/dL (0.6-1.3); GLUCOSE 100 mg/dL (74-106); PROTEIN - SERUM 7.8 g/dL (6.4-8.2); SODIUM 142 mmol/L (136-145); UREA NITROGEN 7 mg/dL (7-18); eGFR NON AFRICAN AMERICAN > 90 mL/min (90-120)
[2018-12-26 05:57] LABS: MAGNESIUM - SERUM 1.8 mg/dL (1.8-2.4)
[2018-12-26 06:21] LABS: APPEARANCE CLEAR (CLEAR); BILIRUBIN NEGATIVE (NEGATIVE); COLOR YELLOW (YELLOW); GLUCOSE NEGATIVE (NEGATIVE); KETONE NEGATIVE (NEGATIVE); NITRITE NEGATIVE (NEGATIVE); PROTEIN NEGATIVE (NEGATIVE); SPECIFIC GRAVITY 1.015 (1.005-1.020); UROBILINOGEN NORMAL (NORMAL)
[2018-12-26 06:31] LABS: UDS - AMPHET NEGATIVE QUAL (NEGATIVE); UDS - BARB NEGATIVE QUAL (NEGATIVE); UDS - BENZO NEGATIVE QUAL (NEGATIVE); UDS - COCAINE POSITIVE QUAL (NEGATIVE); UDS - OPIATE NEGATIVE QUAL (NEGATIVE); UDS - PCP NEGATIVE QUAL (NEGATIVE); UDS - THC NEGATIVE QUAL (NEGATIVE)
[2018-12-26 13:32] VITALS: BP 110/70
== END 2018-12-26 13:38 ==
LOC: D.ER 04:40
PROVIDERS: Family Medicine
DX: R45.851 Suicidal ideations (principal); F17.210 Nicotine dependence, cigarettes, uncomplicated

== ENCOUNTER 2019-01-04 11:51 | Emergency (ER) | payer MEDICAID ==
[~2019-01-04] VITALS: Ht 182.9 cm; Wt 65.9 kg
[2019-01-04 11:57] VITALS: BP 104/74; Ht 182.9 cm; Wt 65.9 kg
[2019-01-04 12:57] LABS: INR 0.91 (0.85-1.17); PROTIME 11.8 SECONDS (11.6-15.0)
[2019-01-04 13:15] LABS: CREATINE KINASE 36 UL (21-232); LIPASE 214 U/L (73-393); MAGNESIUM - SERUM 2.5 mg/dL (1.8-2.4); PRO BNP 90 pg/mL (0-125); THYROID STIMULATING HORMONE 0.35 uIU/mL (0.36-3.74); TROPONIN-I < 0.017 ng/mL (0.000-0.060)
== END 2019-01-04 16:14 | disposition home or self-care (01) ==
LOC: D.ER 11:51
PROVIDERS: Family Medicine
DX: G82.20 Paraplegia, unspecified (principal); F10.129 Alcohol abuse with intoxication, unspecified

== ENCOUNTER 2019-01-05 19:52 | Emergency (ER) | payer MEDICAID ==
[~2019-01-05] VITALS: Ht 182.9 cm; Wt 68.2 kg
[2019-01-05 19:52] VITALS: Ht 182.9 cm; Wt 68.2 kg
[2019-01-05 21:51] LABS: BASOPHILS 0.3 % (0-2); EOSINOPHILS 1.6 % (0-7); HEMATOCRIT 42.8 % (42.0-54.0); HEMOGLOBIN 14.5 g/dL (13.5-17.5); IMMATURE GRANULOCYTES 0.1 % (0-5); LYMPHOCYTES 28.6 % (15-50); MCHC 33.9 g/dL (31.0-37.0); MCV 100.2 fL (80.0-100.0); MEAN PLATELET VOLUME 9.6 fL (7.4-10.4); MONOCYTES 9.3 % (2-11); NEUTROPHILS 60.1 % (40-80); PLATELET COUNT 238 10x3/uL (130-400); RBC 4.27 10x6/uL (4.20-6.10); RDW 13.6 % (11.5-14.5); WBC 6.9 10x3/uL (4.8-10.8)
[2019-01-05 21:59] LABS: INR 0.95 (0.85-1.17); PROTIME 12.2 SECONDS (11.6-15.0)
[2019-01-05 22:04] LABS: CALC OSMOLALITY 281 mosm/kg (275-300); CALCIUM 8.8 mg/dL (8.5-10.1); CHLORIDE - SERUM 104 mmol/L (98-107); CREATININE - SERUM 0.5 mg/dL (0.6-1.3); GLUCOSE 79 mg/dL (74-106); POTASSIUM - SERUM 4.1 mmol/L (3.5-5.1); SODIUM 143 mmol/L (136-145); UREA NITROGEN 8 mg/dL (7-18); eGFR NON AFRICAN AMERICAN > 90 mL/min (90-120)
[2019-01-05 22:12] LABS: ALBUMIN 3.6 g/dL (3.4-5.0); ALKALINE PHOSPHATASE 66 U/L (46-116); ALT (SGPT) 29 U/L (10-68); BILIRUBIN - TOTAL 0.12 mg/dL (0.2-1.3); PROTEIN - SERUM 8.1 g/dL (6.4-8.2)
[2019-01-05 22:16] LABS: APPEARANCE CLEAR (CLEAR); BILIRUBIN NEGATIVE (NEGATIVE); COLOR STRAW (YELLOW); GLUCOSE NEGATIVE (NEGATIVE); KETONE NEGATIVE (NEGATIVE); NITRITE NEGATIVE (NEGATIVE); PROTEIN NEGATIVE (NEGATIVE); SPECIFIC GRAVITY 1.005 (1.005-1.020); UROBILINOGEN NORMAL (NORMAL)
[2019-01-05 22:26] LABS: UDS - AMPHET NEGATIVE QUAL (NEGATIVE); UDS - BARB NEGATIVE QUAL (NEGATIVE); UDS - BENZO NEGATIVE QUAL (NEGATIVE); UDS - COCAINE POSITIVE QUAL (NEGATIVE); UDS - OPIATE NEGATIVE QUAL (NEGATIVE); UDS - PCP NEGATIVE QUAL (NEGATIVE); UDS - THC NEGATIVE QUAL (NEGATIVE)
[2019-01-06 09:47] VITALS: BP 140/78
== END 2019-01-06 09:49 | disposition home or self-care (01) ==
LOC: D.ER 19:52
PROVIDERS: Emergency Medicine
DX: S00.81XA Abrasion of other part of head, initial encounter (principal); W05.0XXA Fall from non-moving wheelchair, initial encounter; F10.129 Alcohol abuse with intoxication, unspecified; G82.20 Paraplegia, unspecified; F14.10 Cocaine abuse, uncomplicated

== ENCOUNTER 2019-01-07 00:17 | Emergency (ER) | payer MEDICAID ==
[~2019-01-07] VITALS: Ht 182.9 cm; Wt 68.0 kg
[2019-01-07 00:22] VITALS: Ht 182.9 cm; Wt 68.0 kg
[2019-01-07 00:40] LABS: APPEARANCE CLEAR (CLEAR); BILIRUBIN NEGATIVE (NEGATIVE); COLOR YELLOW (YELLOW); GLUCOSE NEGATIVE (NEGATIVE); KETONE NEGATIVE (NEGATIVE); NITRITE NEGATIVE (NEGATIVE); PROTEIN NEGATIVE (NEGATIVE); SPECIFIC GRAVITY 1.015 (1.005-1.020); UROBILINOGEN NORMAL (NORMAL)
[2019-01-07 00:50] LABS: UDS - AMPHET NEGATIVE QUAL (NEGATIVE); UDS - BARB NEGATIVE QUAL (NEGATIVE); UDS - BENZO NEGATIVE QUAL (NEGATIVE); UDS - COCAINE POSITIVE QUAL (NEGATIVE); UDS - OPIATE NEGATIVE QUAL (NEGATIVE); UDS - PCP NEGATIVE QUAL (NEGATIVE); UDS - THC NEGATIVE QUAL (NEGATIVE)
[2019-01-07 00:53] LABS: CALC OSMOLALITY 280 mosm/kg (275-300); CALCIUM 8.5 mg/dL (8.5-10.1); CARBON DIOXIDE 26.1 mmol/L (21.0-32.0); CHLORIDE - SERUM 104 mmol/L (98-107); CREATININE - SERUM 0.6 mg/dL (0.6-1.3); GLUCOSE 93 mg/dL (74-106); POTASSIUM - SERUM 3.7 mmol/L (3.5-5.1); SODIUM 142 mmol/L (136-145); UREA NITROGEN 7 mg/dL (7-18); eGFR NON AFRICAN AMERICAN > 90 mL/min (90-120)
[2019-01-07 00:58] LABS: ALBUMIN 3.4 g/dL (3.4-5.0); ALKALINE PHOSPHATASE 59 U/L (46-116); ALT (SGPT) 31 U/L (10-68); BILIRUBIN - TOTAL 0.19 mg/dL (0.2-1.3); PROTEIN - SERUM 8.1 g/dL (6.4-8.2)
[2019-01-07 00:59] LABS: BASOPHILS 0.5 % (0-2); EOSINOPHILS 1.1 % (0-7); HEMATOCRIT 39.2 % (42.0-54.0); HEMOGLOBIN 13.3 g/dL (13.5-17.5); IMMATURE GRANULOCYTES 0.2 % (0-5); MCH 33.7 pg (26.0-34.0); MCHC 33.9 g/dL (31.0-37.0); MCV 99.2 fL (80.0-100.0); MEAN PLATELET VOLUME 9.7 fL (7.4-10.4); NEUTROPHILS 55.2 % (40-80); PLATELET COUNT 260 10x3/uL (130-400); RBC 3.95 10x6/uL (4.20-6.10); RDW 13.6 % (11.5-14.5); WBC 5.7 10x3/uL (4.8-10.8)
--- NOTE | 2019-01-07 08:00 | NUR ---
DR. DICKEY NOTIFIED AND SITTER ORDERED. SITTER AT BEDSIDE. NOTIFIED CHARGE NURSE AND ATTENDING IN REGARDS TO ASSESSMENT FINDINGS. RESOURCES GIVEN TO PT AND SAFETY PLAN REFUSED X 3.
[2019-01-07 23:58] VITALS: BP 122/89
== END 2019-01-08 00:01 ==
LOC: D.ER 00:17
PROVIDERS: Emergency Medicine
DX: F14.10 Cocaine abuse, uncomplicated (principal); F10.10 Alcohol abuse, uncomplicated; Y90.7 Blood alcohol level of 200-239 mg/100 ml; R45.851 Suicidal ideations; F17.210 Nicotine dependence, cigarettes, uncomplicated